=== PATIENT | male | born 1990 | race Caucasian/White ===

== ENCOUNTER 2019-02-17 18:19 | Emergency (ER) | payer OTHER ==
[2019-02-17] MEDS: SOD CHLORIDE 0.9% 1,000 ML IV (18:52)
[2019-02-17] MEDS: morphine 4 MG/ML VIAL IV (18:52)
[2019-02-17] MEDS: ONDANSETRON 4 MG INJ IV ×2 (18:52→21:12)
[2019-02-17 18:54] LABS: ADD MAN DIFF? NO
[2019-02-17 18:56] LABS: BASOPHIL # 0.1 10^3/ul (0.0-0.1); BASOPHILS % 0.9 % (0.0-2.0); EOSINOPHILS # 0.1 10^3/ul (0.0-0.5); EOSINOPHILS % 1.2 % (0.0-7.0); HEMATOCRIT 41.5 % (42.0-52.0); HEMOGLOBIN 13.4 g/dl (14.0-18.0); LYMPHOCYTES # 1.5 10^3/ul (0.8-2.9); LYMPHOCYTES % 21.4 % (15.0-51.0); MEAN CORPUSCULAR HGB CONC 32.3 g/dl (32.0-37.0); MEAN CORPUSCULAR VOLUME 83.5 fl (82.0-101.0); MEAN PLATELET VOLUME 10.9 fl (7.4-10.4); MONOCYTE # 0.5 10^3/ul (0.3-0.9); MONOCYTES % 7.7 % (0.0-11.0); NEUTROPHIL # 4.6 10^3/ul (1.6-7.5); NEUTROPHILS % 68.4 % (39.0-77.0); PLATELET COUNT 229 10^3/UL (140-415); RED BLOOD COUNT 4.97 10^6/ul (4.70-6.10); RED CELL DISTRIBUTION WIDTH 12.6 % (11.5-14.5)
[2019-02-17 18:56] LABS: WHITE BLOOD COUNT 6.8 10^3/ul (4.8-10.8)
[2019-02-17 19:15] LABS: ANION GAP 12 (5-13); BLOOD UREA NITROGEN 12 mg/dl (7-20); CALCIUM 9.7 mg/dl (8.4-10.2); CARBON DIOXIDE 22 mmol/L (21-31); CHLORIDE 108 mmol/L (97-110); CREATININE 0.88 mg/dl (0.61-1.24); Estimated GFR > 60 mL/min (>60); GLUCOSE 124 mg/dl (70-220); POTASSIUM 3.5 mmol/L (3.5-5.1); SODIUM 142 mmol/L (135-144)
[2019-02-17 19:20] LABS: INR 1.02; PROTIME 13.5 Sec (11.9-14.9); PT RATIO 1.1
[2019-02-17] MEDS: HYDROmorphONE 2 MG/ML SYG IV (19:26)
[2019-02-17] MEDS: CEFAZOLIN 1 GM/50 ML (PMX) 50 ML IVPB (20:21)
[2019-02-17] MEDS: DIPHTH/TET/ACEL PERTUSS (ADULT) 0.5 ML VIAL IM* (20:22)
[2019-02-17] MEDS: LORAZEPAM 2 MG INJ IV (20:52)
[2019-02-17] MEDS: HYDROmorphONE 1 MG/ML SYG IV (21:12)
== END 2019-02-17 21:58 | disposition short-term general hospital (02) ==
LOC: E/R 18:19
DX: S66.922A Laceration of unspecified muscle, fascia and tendon at wrist and hand level, left hand, initial encounter (principal); R58 Hemorrhage, not elsewhere classified; W26.0XXA Contact with knife, initial encounter; Y92.9 Unspecified place or not applicable; Z23 Encounter for immunization
CPT/HCPCS: 36415; 80048; 85025; 85610; 85730; 90471; 90715; 96374; 96375; 96376; 99285-25